=== PATIENT | male | born 1955 | race Caucasian/White ===

== ENCOUNTER → 2019-05-27 | Outpatient (CLI) | payer MEDICARE, OTHER | LOC: COL.RAD 07:49 | DX: M25.551 Pain in right hip (principal) | CPT/HCPCS: J3301; Q9967 ==

== ENCOUNTER → 2019-09-23 | Outpatient (CLI) | payer MEDICARE | LOC: COL.RAD 07:30 | DX: M25.551 Pain in right hip (principal) | CPT/HCPCS: J3301; Q9967 ==

== ENCOUNTER → 2020-01-19 | Outpatient (CLI) | payer MEDICARE | LOC: COL.RAD 09:26 | DX: M25.551 Pain in right hip (principal) | CPT/HCPCS: J3301; Q9967 ==